=== PATIENT | male | born 1960 | race African-American/Black ===

== ENCOUNTER 2025-01-18 23:23 | Emergency (ER) | payer SELFPAY ==
[2025-01-18 23:55] LABS: #Basophils 0.0 thou/uL (0.0-0.2); #Eosinophils 0.0 thou/uL (0.0-0.7); #Lymphocytes 2.9 thou/uL (1.20-3.40); #Monocytes 0.4 thou/uL (0.11-0.59); #Neutrophils 2.6 thou/uL (1.40-6.50); %Basophils 0.4 % (0.0-1.0); %Eosinophils 0.3 % (0.0-10.0); %Lymphocytes 48.8 % (21.0-51.0); %Monocytes 6.7 % (0.0-10.0); %Neutrophils 43.8 % (42.0-75.0); Hematocrit 17.0 % (42.0-52.0); Hemoglobin 5.1 g/dL (14.0-18.0); Mean Corpuscular Hemoglobin 21.0 pg (27.0-31.0); Mean Corpuscular Volume 69.7 fl (78.0-98.0); Platelet Count 269 10x3/uL (130-400); Red Blood Cell (RBC) Count 2.44 mill/uL (4.70-6.10); White Blood Cell (WBC) Count 6.0 10x3/uL (4.8-10.8)
[2025-01-19 00:06] LABS: ALT (SGPT) 9 U/L (Less than 45); AST (SGOT) 29 U/L (11-34); Albumin 2.7 g/dL (3.1-4.5); Alkaline Phosphatase 107 U/L (40-110); Anion Gap 18 mmol/L (10-20); BUN (Urea Nitrogen) 15 mg/dL (8.4-25.7); Bilirubin, Total 0.3 mg/dL (0.3-1.2); Calc. Creatinine Clearance 0 mL/min (70-130); Calcium 9.5 mg/dL (7.8-10.44); Carbon Dioxide 22 mmol/L (23-31); Chloride 102 mmol/L (98-107); Globulin 4.8 g/dL (2.4-3.5); Glucose 105 mg/dL (80-115); Potassium 4.1 mmol/L (3.5-5.1); Sodium 138 mmol/L (136-145)
[2025-01-19 00:14] LABS: INR-International Normal Ratio 1.4; PTT 50.2 sec (22.9-36.1); Prothrombin Time 17.2 sec (12.0-14.7)
[2025-01-19 05:08] LABS: Bacteria/HPF None Seen HPF (None Seen); CAUTI Indications for Culture Alt mental st,lethar; Glucose, Urine (Dipstick) Negative (Negative); Leukocyte Trace (Negative); Protein, Urine (Dipstick) Trace mg/dL (Neg-Trace); RBC/HPF None Seen HPF (0-3); Specific Gravity, Urine 1.010 (1.005-1.030); WBC/HPF 0-3 HPF (0-3)
[2025-01-19 05:09] LABS: Urine Culture Reflex No No
[2025-01-19 06:38] LABS: #Basophils 0.1 thou/uL (0.0-0.2); #Eosinophils 0.0 thou/uL (0.0-0.7); #Lymphocytes 1.9 thou/uL (1.20-3.40); #Monocytes 0.3 thou/uL (0.11-0.59); #Neutrophils 3.2 thou/uL (1.40-6.50); %Basophils 1.0 % (0.0-1.0); %Eosinophils 0.1 % (0.0-10.0); %Lymphocytes 34.1 % (21.0-51.0); %Monocytes 5.9 % (0.0-10.0); %Neutrophils 58.9 % (42.0-75.0); Hematocrit 24.6 % (42.0-52.0); Hemoglobin 7.5 g/dL (14.0-18.0); Manual Diff?? NO; Mean Corpuscular Hemoglobin 22.5 pg (27.0-31.0); Mean Corpuscular Volume 73.7 fl (78.0-98.0); Platelet Count 283 10x3/uL (130-400); Red Blood Cell (RBC) Count 3.34 mill/uL (4.70-6.10); White Blood Cell (WBC) Count 5.4 10x3/uL (4.8-10.8)
== END 2025-01-19 08:02 | disposition home or self-care (01) ==
LOC: NAV ERS 23:23
DX: D50.9 Iron deficiency anemia, unspecified (principal)
CPT/HCPCS: 36430; 80053; 81001; 82274; 82607; 82746; 83550; 85025; 85610; 85730; 86850; 86900; 86901; 99284; P9016